=== PATIENT | male | born 2000 | race Caucasian/White ===

== ENCOUNTER 2021-05-27 21:53 | Emergency (ER) | payer OTHER ==
[~2021-05-27 21:53] MED LIST: BENTYL 20MG TAB20 MG PO; MEDROL4 MG PO; PHENERGAN 12.12.5 M1 PO; TYLENOL 8 HOUR650 MG PO; VISTARIL25 MG PO; VITAMIN D21250 MCG PO; ZOFRAN4 MG PO
[2021-05-27 23:31] LABS: HEMOGLOBIN 15.7 gm/dl (14.0-17.5); RED BLOOD COUNT 5.53 M/UL (4.20-5.50); WHITE BLOOD COUNT 23.1 K/UL (4.5-11.0)
[2021-05-27 23:55] LABS: BUN/CREATININE RATIO 15 (0-10)
[2021-05-28] MEDS ORDERED: DOXYCYCLINE HY100 M2 PO (01:21)
[2021-05-28] MEDS ORDERED: CHEST CONG100 MG/5 M PO (01:21)
[2021-05-28] MEDS ORDERED: SINGULAIR10 MG PO (01:21)
[2021-05-28] MEDS ORDERED: ATROVENT-HFA12.9 GM INH (01:21)
[2021-05-28] MEDS ORDERED: ZOFRAN4 MG PO (01:21)
== END 2021-05-28 02:12 | disposition home or self-care (01) ==
LOC: ER1 21:53
PROVIDERS: Physician Assistant Medical
DX: R11.2 Nausea with vomiting, unspecified (principal); R19.7 Diarrhea, unspecified; R05 Cough; J45.909 Unspecified asthma, uncomplicated; Z90.49 Acquired absence of other specified parts of digestive tract; Z20.822 Contact with and (suspected) exposure to COVID-19; R10.9 Unspecified abdominal pain
CPT/HCPCS: 0240U; 71045; 80053; 85025; 94664; 99284; J2405

== ENCOUNTER → 2021-07-21 | Outpatient (CLI) | payer OTHER ==
[~2021-07-21] MED LIST changes: +ATROVENT-HFA12.9 GM INH; +CHEST CONG100 MG/5 M PO; +DOXYCYCLINE HY100 M2 PO; +SINGULAIR10 MG PO
== END ==
LOC: KOH-I 09:15
DX: R06.2 Wheezing (principal)
CPT/HCPCS: 71046

== ENCOUNTER 2021-08-14 10:06 | Emergency (ER) | payer OTHER ==
[~2021-08-14] VITALS: Ht 167.6 cm; Wt 124.7 kg
[2021-08-14 11:32] LABS: HEMOGLOBIN 16.2 gm/dl (14.0-17.5); RED BLOOD COUNT 5.8 M/UL (4.20-5.50); WHITE BLOOD COUNT 5.4 K/UL (4.5-11.0)
[2021-08-14 11:55] LABS: BUN/CREATININE RATIO 11 (0-10)
[2021-08-14] MEDS ORDERED: AUGMENTIN 875-1 EACH PO (12:39)
[2021-08-14] MEDS ORDERED: IBUPROFEN800 MG PO (12:39)
[2021-08-14] MEDS ORDERED: PROAIR HFA8.5 GM INH (12:39)
== END 2021-08-14 15:12 | disposition home or self-care (01) ==
LOC: ER1 10:06
PROVIDERS: Physician Assistant
DX: U07.1 COVID-19 (principal); H66.93 Otitis media, unspecified, bilateral; J40 Bronchitis, not specified as acute or chronic; K21.9 Gastro-esophageal reflux disease without esophagitis; Z23 Encounter for immunization
CPT/HCPCS: 71045; 80053; 82550; 82553; 83874; 84484; 85025; 85379; 93005; 99285; J7030; M0243

== ENCOUNTER → 2021-10-23 | Outpatient (CLI) | payer OTHER ==
[~2021-10-23] MED LIST changes: +AUGMENTIN 875-1 EACH PO; +IBUPROFEN800 MG PO; +PROAIR HFA8.5 GM INH
[2021-10-23 11:37] LABS: HEMOGLOBIN 14.8 gm/dl (14.0-17.5); RED BLOOD COUNT 5.31 M/UL (4.20-5.50)
[2021-10-24 07:11] LABS: A/G RATIO 1.5 (1.2-2.2); ALKALINE PHOSPHATASE, S 91 IU/L (44-121); ALT (SGPT) 56 IU/L (0-44); AST (SGOT) 36 IU/L (0-40); BILIRUBIN, TOTAL <0.2 mg/dL (0.0-1.2); BUN 11 mg/dL (6-20); BUN/CREATININE RATIO 13 (9-20); CALCIUM, SERUM 9.3 mg/dL (8.7-10.2); CARBON DIOXIDE, TOTAL 18 mmol/L (20-29); CHLORIDE, SERUM 106 mmol/L (96-106); CREATININE, SERUM 0.82 mg/dL (0.76-1.27); EGFR IF AFRICN AM 146 (>59); EGFR IF NONAFRICN AM 126 (>59); ESTIM. AVG GLU (EAG) 114 mg/dL (.); GLOBULIN, TOTAL 2.8 g/dL (1.5-4.5); GLUCOSE, SERUM 93 mg/dL (65-99); HEMOGLOBIN A1C 5.6 % (4.8-5.6); POTASSIUM, SERUM 4.8 mmol/L (3.5-5.2); PROTEIN, TOTAL, SERUM 6.9 g/dL (6.0-8.5); SODIUM, SERUM 139 mmol/L (134-144)
[2021-10-24 08:13] LABS: C-REACTIVE PROTEIN, QUANT 12 mg/L (0-10); VITAMIN D, 25-HYDROXY 24.9 ng/mL (30.0-100.0)
== END ==
LOC: LAB 10:11
PROVIDERS: Physician Assistant
DX: Z13.1 Encounter for screening for diabetes mellitus (principal); M79.10 Myalgia, unspecified site; R53.83 Other fatigue
CPT/HCPCS: 80053; 82550; 83036; 84439; 84443; 85027; 85652; 86038; 86140

== ENCOUNTER → 2022-02-28 | Outpatient (CLI) | payer OTHER | LOC: RAD 11:08 | DX: M25.561 Pain in right knee (principal) | CPT/HCPCS: 73564 ==

== ENCOUNTER 2022-03-07 22:05 | Emergency (ER) | payer OTHER ==
[2022-03-08] MEDS ORDERED: NAPROSYN500 MG PO (00:17)
== END 2022-03-08 00:45 | disposition home or self-care (01) ==
LOC: ER1 22:05
DX: S93.401A Sprain of unspecified ligament of right ankle, initial encounter (principal); X50.9XXA Other and unspecified overexertion or strenuous movements or postures, initial encounter; Y92.009 Unspecified place in unspecified non-institutional (private) residence as the place of occurrence of the external cause
CPT/HCPCS: 73610; 99283